=== PATIENT | male | born 1975 | race Caucasian/White ===

== ENCOUNTER 2022-09-25 17:08 | Emergency (ER) | payer OTHER ==
[~2022-09-25] VITALS: Ht 170.2 cm; Wt 85.7 kg
[~2022-09-25 17:08] MED LIST: IBUPROFEN800 MG PO; ORPH100T PO
[2022-09-25] MEDS ORDERED: TAMSULOSIN HCL0.4 MG PO (17:34)
[2022-09-25] MEDS ORDERED: TRAM1TAB98 PO (17:35)
== END 2022-09-25 21:09 | disposition home or self-care (01) ==
LOC: ER 17:08
DX: N20.0 Calculus of kidney (principal); Z87.442 Personal history of urinary calculi

== ENCOUNTER 2024-08-06 11:10 | Emergency (ER) | payer OTHER ==
[~2024-08-06] VITALS: Ht 170.2 cm; Wt 84.8 kg
[~2024-08-06 11:10] MED LIST changes: +TAMSULOSIN HCL0.4 MG PO; +TRAM1TAB98 PO
[2024-08-06] MEDS ORDERED: LOSARTAN POTASS50 MG PO (11:55)
[2024-08-06] MEDS ORDERED: NAPROXEN500 MG PO (11:55)
[2024-08-06] MEDS ORDERED: KETOROLAC TROMETHAMINE 30 MG VIAL IV STA (13:44)
[2024-08-06] MEDS ORDERED: KETOROLAC TROMETHAMINE 30 MG VIAL IM STA (13:44)
[2024-08-06] MEDS ORDERED: ORPHENADRINE CITRATE 30 MG/ML AMPUL IV STA (13:45)
[2024-08-06] MEDS ORDERED: DEXAMETHASONE SODIUM PHOSPHATE 4 MG/ML VIAL IV STA (13:45)
== END 2024-08-06 16:00 | disposition home or self-care (01) ==
LOC: ER 11:11
DX: M51.26 Other intervertebral disc displacement, lumbar region (principal); I10 Essential (primary) hypertension
CPT/HCPCS: 96365; 96372; 99282; J1100; J1885 ×2; J2360

== ENCOUNTER → 2025-06-29 | Emergency (ER) | payer OTHER ==
[~2025-06-29] VITALS: Ht 170.2 cm; Wt 87.5 kg
[~2025-06-29] MED LIST changes: +GUAIFENESIN 200 MG/10 ML BLIST.PACK PO ONE; +KETOROLAC TROMETHAMINE 30 MG VIAL IM ONE; +LOSARTAN POTASS50 MG PO; +NAPROXEN500 MG PO
[2025-06-29 13:26] LABS: URINE APPEARANCE Clear; URINE BILIRRUBIN Negative (NEGATIVE); URINE BLOOD Negative; URINE COLOR Yellow; URINE GLUCOSE Negative (NEGATIVE); URINE KETONE Trace (NEGATIVE); URINE LEUKOCYTE Negative; URINE NITRATE Negative; URINE PROTEIN Negative (NEGATIVE); URINE UROBILINOGEN 0.2 E.U./dl
[2025-06-29 13:29] LABS: BASO % 0.6 % (0.1-1.2); EOS # 0.06 (0.04-0.54); EOS % 0.9 % (0.7-7.0); LYMPH # 1.25 (1.18-3.74); LYMPH % 19.2 % (19.3-53.1); MEAN PLATELET VOLUME 10.20 fl (9.4-12.4); MONO # 0.92 (0.24-0.82); NEUT # 4.21 (1.56-6.13); NEUT % 64.8 % (34.0-71.1); RED CELL DISTRIBUTION WIDTH 11.9 % (11.6-14.4); URINE BACTERIA 5.9 uL (0.0-1933); URINE RBC 14.3 uL (0.0-20.8)
[2025-06-29 13:31] LABS: MONO % 14.2 % (4.7-12.5)
[2025-06-29 13:38] LABS: URINE CAST 0.00 uL (0.0-1.40); URINE EPITHELIAL CELLS 1.2 uL (0.0-38.8); URINE WBC 1.2 uL (0.0-23.2)
[2025-06-29 13:49] LABS: COVID-19 AG NEGATIVE (NEGATIVE)
== END | disposition home or self-care (01) ==
LOC: ER 10:54
PROVIDERS: General Practice
DX: J10.1 Influenza due to other identified influenza virus with other respiratory manifestations (principal); R50.9 Fever, unspecified; I10 Essential (primary) hypertension; M54.50 Low back pain, unspecified; Z20.822 Contact with and (suspected) exposure to COVID-19
CPT/HCPCS: 36415; 96372; 99282; J1885